=== PATIENT | male | born 1980 | race Caucasian/White ===

== ENCOUNTER 2025-01-04 12:42 | Emergency (ER) | payer MEDICAID ==
[~2025-01-04] VITALS: Ht 165.1 cm; Wt 82.0 kg
[2025-01-04 12:45] VITALS: O2SAT 100
[2025-01-04 13:15] LABS: *AMPHETAMINES SCREEN URINE PRESUMPTIVE POSITIVE (NEGATIVE); *BARBITURATES SCREEN URINE NEGATIVE (NEGATIVE); *BENZODIAZEPINES SCREEN URINE NEGATIVE (NEGATIVE); *COCAINE SCREEN URINE PRESUMPTIVE POSITIVE (NEGATIVE); CANNABINOID URINE SCREEN PRESUMPTIVE POSITIVE (NEGATIVE); ECSTASY MDMA SCREEN URINE CONF.TEST INDICATED (NEGATIVE); METHADONE URINE SCREEN NEGATIVE (NEGATIVE); OPIATES URINE SCREEN NEGATIVE (NEGATIVE); PHENCYCLIDINE URINE SCREEN NEGATIVE (NEGATIVE)
[2025-01-04 13:31] VITALS: TEMP 36.7
[2025-01-04 14:42] LABS: BASOPHILS % 0.8 % (0.0-2.0); EOSINOPHILS % 0.2 % (0.0-5.0); HEMATOCRIT. 43.6 % (42.0-52.0); HEMOGLOBIN. 14.6 g/dL (14.0-18.0); LYMPHOCYTES % 10.6 % (20.0-50.0); MEAN PLATELET VOLUME 7.5 fl (7.4-10.4); MONOCYTES % 9.1 % (2.0-8.0); NEUTROPHILS % 79.3 % (40.0-76.0); PLATELET 372 x1000/uL (130-400); RED BLOOD CELL COUNT 4.97 mill/uL (4.7-6.1); RED CELL DISTRIBUTION WIDTH 14.2 % (11.6-14.6)
[2025-01-04 14:54] LABS: CREATININE 0.9 mg/dL (0.6-1.3); UREA NITROGEN BLOOD 12 mg/dL (9-23)
[2025-01-04] MEDS: DIAZEPAM 2 MG TABLET PO ONE (16:45)
[2025-01-04 19:03] VITALS: BP 148/96; PULSE 95; RESP 18; O2SAT 100
== END 2025-01-04 19:06 | disposition home or self-care (01) ==
LOC: ER 12:42
DX: F41.9 Anxiety disorder, unspecified (principal); R44.2 Other hallucinations; R07.9 Chest pain, unspecified; Z20.822 Contact with and (suspected) exposure to COVID-19
CPT/HCPCS: 36415; 80048; 80305; 80320; 85025; 87426; 93005; 99284; G0480

== ENCOUNTER 2025-01-22 12:10 | Emergency (ER) | payer MEDICAID ==
[~2025-01-22] VITALS: Ht 170.2 cm; Wt 86.0 kg
[2025-01-22 12:16] VITALS: TEMP 36.5; O2SAT 100
[2025-01-22] MEDS ORDERED: KETO15CR2 TP (17:05)
[2025-01-22 17:35] VITALS: BP 129/88; PULSE 82; RESP 18; O2SAT 100
== END 2025-01-22 17:39 | disposition home or self-care (01) ==
LOC: ER 13:10
DX: B35.4 Tinea corporis (principal); Z59.01 Sheltered homelessness; F15.90 Other stimulant use, unspecified, uncomplicated
CPT/HCPCS: 99283